=== PATIENT | female | born 1940 | race African-American/Black ===

== ENCOUNTER → 2021-10-29 | Outpatient (CLI) | payer MEDICARE ==
[~2021-10-29] MED LIST: IOPAMIDOL 370 MG/ML 100 ML INFUS..BTL INJ ONE
[2021-10-29 15:39] LABS: CREATININE, SERUM 0.97 mg/dL (0.57-1.11)
== END ==
LOC: CT 14:41
PROVIDERS: ATTEND Family Medicine
DX: R10.0 Acute abdomen (principal); K44.9 Diaphragmatic hernia without obstruction or gangrene; K57.30 Diverticulosis of large intestine without perforation or abscess without bleeding
CPT/HCPCS: 36415; 74177; 82565; 84520; Q9967